=== PATIENT | male | born 1945 | race Caucasian/White ===

== ENCOUNTER 2024-08-10 14:52 | Emergency (ER) | payer OTHER, SELFPAY ==
[2024-08-10] VITALS (10 sets, daily range): BP systolic 147–202; BP diastolic 65–136; PULSE 64–86; RESP 17; TEMP 36.6; O2SAT 97–100
--- NOTE | 2024-08-10 15:08 | ED.GENADULT ---
HPI - General Adult General Chief complaint: Back Pain/Injury Stated complaint: back px Time Seen by Provider: 08/10/24 15:08 History of Present Illness HPI narrative: 79-year-old gentleman with a history of hypertension, coronary artery disease, hyperlipidemia who presents complaining of left upper chest pain radiating through to his back present 2 weeks increasing describes it as a sharp tearing type pain no associated cough or dyspnea. He has never had similar findings. He does have some mild cognitive impairment in his accompanied by his who confirms his story. No nausea, vomiting, abdominal pain, lower extremity edema Related Data Home Medications Medication Instructions Recorded Confirmed atorvastatin 20 mg tablet (Lipitor) mg PO BEDTIME 08/10/24 lisinopril 20 mg tablet mg PO DAILY 08/10/24 metoprolol succinate 25 mg mg PO DAILY 08/10/24 tablet,extended release 24 hr tamsulosin 0.4 mg capsule 0.4 mg PO DAILY 08/10/24 08/10/24 upadacitinib 30 mg tablet,extended mg PO DAILY 08/10/24 release 24 hr (Rinvoq) Allergies Allergy/AdvReac Type Severity Reaction Status Date / Time No Known Drug Allergies Allergy Verified 08/10/24 15:16 Review of Systems Review of Systems Narrative: Pertinent positive and negative findings as per HPI Patient History Medical History (Updated 08/10/24 @ 18:29 by Becky Kohli MD) Hypertension Hyperlipidemia Social History Smoking Status: Unknown if ever smoked Exam Initial Vital Signs Initial Vital Signs: Vital Signs Pulse Rate 74 08/10/24 15:06 Blood Pressure 151/65 H 08/10/24 15:06 Pulse Oximetry 100 08/10/24 15:06 General: Healthy appearing, in no acute distress. Able to give a complete and coherent history. HEENT: Moist mucous membranes, normal sclera with reactive pupils, Respiratory: Lungs are clear to auscultation, no wheezing no rales no rhonchi. Full and symmetrical air movement Chest: No reproducible chest pain on palpation, no rashes Cardiac: Regular rate and rhythm no murmurs no bruits Abdomen: Soft, nontender, good bowel tones, no flank pain Skin: Warm and dry, no rashes Neurologic: Grossly neurologically intact with no obvious asymmetries or abnormalities Extremities: No trauma, no lower extremity edema Psych: Cooperative, mild cognitive impairment Course Orders Ordered: ED Orders 08/10/24 15:09 EKG-12 Lead Routine 08/10/24 15:27 CT angio chest abdomen pelvis Stat 08/10/24 15:35 Complete Blood Count AUTO DIFF Stat Comprehensive Metabolic Panel Stat Troponin I Stat Vital Signs Vital signs: Vital Signs - 8 hr 08/10/24 15:06 08/10/24 15:06 08/10/24 15:09 Temperature 98 F Pulse Rate 74 78 Respiratory Rate 17 Blood Pressure 151/65 H 202/136 H Pulse Oximetry 100 100 Oxygen Delivery Method Room Air 08/10/24 15:30 08/10/24 16:38 Temperature Pulse Rate 70 84 Respiratory Rate Blood Pressure Pulse Oximetry 99 98 Oxygen Delivery Method Medical Decision Making Lab Data 08/10/24 15:35 08/10/24 15:35 Labs: Lab Results 08/10/24 Range/Units 15:35 WBC 3.6 L (4.5-11.0) X10^3/uL RBC 3.27 L (4.5-5.9) X10^6/uL Hgb 11.7 L (13.5-17.5) g/dL Hct 34.7 L (41-53) % MCV 106.1 H (80-100) fL MCH 35.7 H (26-34) PG MCHC 33.6 (30-36) % RDW 13.1 (11.6-14.8) % Plt Count 122 L (150-400) X10^3/uL Neut % (Auto) 70.1 (50-75) % Lymph % (Auto) 18.7 L (25-40) % Emmons % (Auto) 10.7 (3-14) % Eos % (Auto) 0.3 L (2-4) % Baso % (Auto) 0.2 (0-2) % Neut # (Auto) 2500 (7226-4723) /uL Lymph # (Auto) 700 L (9446-4559) /uL Emmons # (Auto) 400 (0-900) /uL Eos # (Auto) 0 (0-450) /uL Baso # (Auto) 0 (0-100) /uL Sodium 134 L (137-145) mmol/L Potassium 4.9 (3.4-5.1) mmol/L Chloride 104 (98-107) mmol/L Carbon Dioxide 23 (22-32) mmol/L BUN 27 H (9-20) mg/dL Creatinine 1.36 H (0.66-1.25) mg/dL Estimated GFR 53 L (>60) mL/min BUN/Creatinine Ratio 19.9 (6-22) Glucose 97 (80-110) mg/dL Calcium 8.9 (8.4-10.2) mg/dL Total Bilirubin 0.8 (0.2-1.3) mg/dL AST 55 (17-59) IU/L ALT 31 (<50) IU/L Alkaline Phosphatase 53 (38-126) U/L Troponin I 0.028 (0.01-0.034) ng/mL Total Protein 6.9 (6.3-8.2) g/dL Albumin 3.9 (3.5-5.0) g/dL Globulin 3.0 (1.7-4.1) g/dL Albumin/Globulin Ratio 1.3 (1.0-2.8) Imaging Data CT scan - abdomen/pelvis: Radiologist's Impression: PROCEDURE: CT ANGIO CHEST ABDOMEN PELVIS INDICATIONS: Concern for aortic dissection TECHNIQUE: Precontrast 5 mm thick sections acquired from the lung apices to the iliac crests. After the administration of intravenous contrast, 2.5 mm thick sections again acquired from the lung apices to the iliac crests. Maximum intensity projection (MIP) oblique sagittal and coronal reformats were then acquired. For radiation dose reduction, the following was used: automated exposure control. COMPARISON: None. FINDINGS: Image quality: Portions of the lower pelvis are suboptimally evaluated secondary to metallic streak artifact from hip arthroplasty. AORTA: No aortic aneurysm. No acute aortic syndrome. CHEST: Lower Neck: No enlarged lymph nodes. Thyroid: No thyroid nodules which require sonographic evaluation. Axillae: No enlarged lymph nodes. Chest Wall: Unremarkable. Lungs and Pleura: No pneumothorax or pleural effusions. No consolidation or suspicious nodules. Heart: Heart size is normal. No pericardial effusion. Thoracic Vessels: Pulmonary arteries demonstrate normal size. Mediastinum and Radha: No enlarged lymph nodes. Esophagus: No wall thickening. No hiatal hernia. ABDOMEN: Liver: No solid mass. Gallbladder: No radiopaque gallstones or wall thickening. Biliary ducts: No biliary dilation. Pancreas: No ductal dilation. Spleen: Size is within normal limits. Adrenal Glands: No adrenal nodules. Kidneys and Ureters: No hydronephrosis. No solid mass. No complex renal cystic lesion which requires follow up. Nonobstructing left renal calculus. Stomach and Bowel: Normal colonic caliber, without significant wall thickening. Peritoneum: No abnormal intraperitoneal fluid. No free air. Ventral Wall: No hernia. Abdominal Nodes: No retroperitoneal or mesenteric adenopathy by size criteria. Vessels: Inferior vena cava is normal in size. PELVIS: Pelvic Organs: Unremarkable. Bladder: Unremarkable. Pelvic Nodes: No enlarged lymph nodes. Miscellaneous: Fat containing inguinal hernias are seen. Bones: Prominent arthritic changes. IMPRESSION: Aorta demonstrates atherosclerotic change without evidence of hemodynamically significant stenosis, vascular occlusion, aneurysmal dilation or dissection. No visualized acute intra-abdominal or pelvic process. Dictated by: Vida Shi M.D. on 08/10/2024 at 17:21 MDM Narrative Medical decision making narrative: CC: Left upper chest stabbing pain Complicating co-morbidities: Hypertension, hyperlipidemia Data collected from: patient, Medical records reviewed: No medical records are available for review Differential considered: Dissection, upper lobe mass, pneumothorax, pneumonia, musculoskeletal pain Exam documented above, pertinent findings include: Patient is in no acute distress. Pain that he has in the left upper chest is not reproducible with musculoskeletal palpation movement or positioning. Heart and lungs are otherwise benign. No evidence of heart failure on clinical exam Lab Test results independently reviewed as above. Pertinent findings: CBC shows white cell count at 3.6. H and H of 11.7 and 34.7. Platelet count of 122 Chemistries show creatinine slightly Elevated at 1.3, no liver abnormalities troponin is undetectable Independently reviewed EKG: Sinus rhythm at a rate of 72, first-degree block. No acute ischemic changes. No comparisons available Imaging studies independently reviewed: CT angio scan of the chest abdomen and pelvis is ordered to rule out dissection and also more further evaluate left upper lobe of lung. There was no evidence of life-threatening abnormality, dissection or abnormalities in the left upper lobe Discussion: 79-year-old gentleman complaining of left upper chest pain at this point with no evidence of dissection, infection, physical abnormalities within the lung parenchyma, no cardiac etiology, no new compression fractures, no evidence of shingles most likely explanation is musculoskeletal pain. Reassurance is given. We discussed pain medication options. Given his mild renal insufficiency going to try to avoid ibuprofen. We negotiated increasing his Tylenol from 1 a day to up to 2 a day. We will give him a Percocet before he leaves today and a prepack of 4 pills to use at nighttime. Did caution him about the increased risk of falling as well as constipation. Briefly discussed the pancytopenia appreciated and suggested they discussed that with his primary care physician at some point in the future. He is safe for discharge Discharge Plan Departure Patient Disposition: Home Clinical Impression: Chest pain, musculoskeletal Instructions: DI for Muscle Strain Activity Restrictions/Additional Instructions: Thank you for coming in today Your workup does not show any life-threatening findings. There is no heart attack, no problems with your aorta, no masses or tumors in your lungs to be causing these problems, no collapsed lung, no compression fractures, no shingles. I suspect that the source of your pain is musculoskeletal. It is okay to take 2 Tylenol in the morning and 2 Tylenol in the evening. For severe pain you can add an extra Percocet at night for pain. I have given you 1 of these prior to going home and for to use over the next couple of days. This is a narcotic, it will make you constipated so please add a stool softener. It does increase your risk of falling so make sure that you are taking care to be extra safe and stable Incidentally noted on your blood work was collection of low white blood cell count, mild anemia and low platelet count, this combination is called pancytopenia. I do not have any of your previous records, so this may be a chronic finding for you. I do want you to follow up with your primary care physician to discuss this and make sure that this left upper back chest pain is improving Prescriptions: No Action atorvastatin [Lipitor] 20 mg Tablet PO BEDTIME lisinopril 20 mg Tablet PO DAILY tamsulosin 0.4 mg Capsule 0.4 mg PO DAILY metoprolol succinate 25 mg Tablet Extended Release 24 Hr PO DAILY Rinvoq 30 mg Tablet Extended Release 24 Hr PO DAILY Referrals: Miscellaneous,Doctor, MD [Primary Care Provider] - Stand Alone Forms: Patient Portal/API
--- NOTE | 2024-08-10 15:09 | EKG_ITS ---
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
--- NOTE | 2024-08-10 15:27 | DI.CT.S_ITS ---
PROCEDURE: CT ANGIO CHEST ABDOMEN PELVIS INDICATIONS: Concern for aortic dissection TECHNIQUE: Precontrast 5 mm thick sections acquired from the lung apices to the iliac crests. After the administration of intravenous contrast, 2.5 mm thick sections again acquired from the lung apices to the iliac crests. Maximum intensity projection (MIP) oblique sagittal and coronal reformats were then acquired. For radiation dose reduction, the following was used: automated exposure control. COMPARISON: None. FINDINGS: Image quality: Portions of the lower pelvis are suboptimally evaluated secondary to metallic streak artifact from hip arthroplasty. AORTA: No aortic aneurysm. No acute aortic syndrome. CHEST: Lower Neck: No enlarged lymph nodes. Thyroid: No thyroid nodules which require sonographic evaluation. Axillae: No enlarged lymph nodes. Chest Wall: Unremarkable. Lungs and Pleura: No pneumothorax or pleural effusions. No consolidation or suspicious nodules. Heart: Heart size is normal. No pericardial effusion. Thoracic Vessels: Pulmonary arteries demonstrate normal size. Mediastinum and Radha: No enlarged lymph nodes. Esophagus: No wall thickening. No hiatal hernia. ABDOMEN: Liver: No solid mass. Gallbladder: No radiopaque gallstones or wall thickening. Biliary ducts: No biliary dilation. Pancreas: No ductal dilation. Spleen: Size is within normal limits. Adrenal Glands: No adrenal nodules. Kidneys and Ureters: No hydronephrosis. No solid mass. No complex renal cystic lesion which requires follow up. Nonobstructing left renal calculus. Stomach and Bowel: Normal colonic caliber, without significant wall thickening. Peritoneum: No abnormal intraperitoneal fluid. No free air. Ventral Wall: No hernia. Abdominal Nodes: No retroperitoneal or mesenteric adenopathy by size criteria. Vessels: Inferior vena cava is normal in size. PELVIS: Pelvic Organs: Unremarkable. Bladder: Unremarkable. Pelvic Nodes: No enlarged lymph nodes. Miscellaneous: Fat containing inguinal hernias are seen. Bones: Prominent arthritic changes. IMPRESSION: Aorta demonstrates atherosclerotic change without evidence of hemodynamically significant stenosis, vascular occlusion, aneurysmal dilation or dissection. No visualized acute intra-abdominal or pelvic process. Dictated by: Vida Shi M.D. on 08/10/2024 at 17:21 Approved by: Vida Shi M.D. on 08/10/2024 at 17:27
[2024-08-10 15:47] LABS: Add Manual Diff / Slide Review NO; Basophils Absolute Auto 0 /uL (0-100); Basophils Percent Auto 0.2 % (0-2); Eosinophils Absolute Auto 0 /uL (0-450); Eosinophils Percent Auto 0.3 % (2-4); Hematocrit 34.7 % (41-53); Hemoglobin 11.7 g/dL (13.5-17.5); Lymphocytes Absolute Auto 700 /uL (1100-4500); Lymphocytes Percent Auto 18.7 % (25-40); Mean Corpuscular HGB Conc 33.6 % (30-36); Mean Corpuscular Hemoglobin 35.7 PG (26-34); Mean Corpuscular Volume 106.1 fL (80-100); Monocytes Absolute Auto 400 /uL (0-900); Monocytes Percent Auto 10.7 % (3-14); Neutrophils Absolute Auto 2500 /uL (1500-7000); Neutrophils Percent Auto 70.1 % (50-75); Platelet Count 122 X10^3/uL (150-400); Red Blood Cell Count 3.27 X10^6/uL (4.5-5.9); Red Cell Distribution Width 13.1 % (11.6-14.8); White Blood Cell Count 3.6 X10^3/uL (4.5-11.0)
[2024-08-10 15:58] LABS: Alanine Aminotransferase 31 IU/L (<50); Albumin 3.9 g/dL (3.5-5.0); Albumin Globulin Ratio 1.3 (1.0-2.8); Alkaline Phosphatase 53 U/L (38-126); Aspartate Aminotransferase 55 IU/L (17-59); BUN Creatinine Ratio 19.9 (6-22); Bilirubin Total 0.8 mg/dL (0.2-1.3); Blood Urea Nitrogen 27 mg/dL (9-20); Calcium 8.9 mg/dL (8.4-10.2); Carbon Dioxide 23 mmol/L (22-32); Chloride 104 mmol/L (98-107); Estimated Glomerular Filt Rate 53 mL/min (>60); Glucose 97 mg/dL (80-110); HEMOLYSIS < 15 (0-50); Potassium 4.9 mmol/L (3.4-5.1); Sodium 134 mmol/L (137-145); Total Protein 6.9 g/dL (6.3-8.2)
[2024-08-10 16:10] LABS: Troponin I 0.028 ng/mL (0.01-0.034)
[2024-08-10] MEDS: OXYCODONE IR 5 MG TABLET PO (18:58)
[2024-08-10] MEDS: OXYCODONE/APAP 5/325 PREPACK 1 BOTTLE MISC (18:59)
== END 2024-08-10 19:03 | disposition home or self-care (01) ==
PROVIDERS: Emergency Provider Emergency Medicine
DX: R07.89 Other chest pain (principal); I10 Essential (primary) hypertension; E78.5 Hyperlipidemia, unspecified; I25.10 Atherosclerotic heart disease of native coronary artery without angina pectoris; R79.89 Other specified abnormal findings of blood chemistry; I44.0 Atrioventricular block, first degree
CPT/HCPCS: 36415; 71275; 74174; 80053; 84484; 85025; 93005; 93010; 99283; 99284; Q9967